=== PATIENT | male | born 1995 | race Hispanic/Latino ===

== ENCOUNTER 2022-07-13 16:28 | Observation (INO) | payer SELFPAY ==
[~2022-07-13 16:28] MED LIST: Iopamidol 370 76% 100 ML VIAL ONE
[2022-07-13] MEDS ORDERED: fentaNYL 50 mcg/mL 1 mL Vial ONE ×2 (18:48→20:06)
[2022-07-13] MEDS ORDERED: Ondansetron ODT 4 MG TAB PO PRN (20:15)
[2022-07-13] MEDS ORDERED: Ondansetron PF 4 MG/2 ML Vial IVP PRN (20:15)
[2022-07-13] MEDS ORDERED: Dextrose 50% Abboject 50 ML SYRINGE SLOW IVP PRN (20:15)
[2022-07-13] MEDS ORDERED: TETANUS, DIPHTHERIA TOX,ADULT (TDVAX) 0.5 ML VIAL IM ONE (20:15)
[2022-07-13] MEDS ORDERED: Dextrose 5% in Water 1,000 ML IV PRN (20:15)
[2022-07-13] MEDS ORDERED: Ipratropium/Albuterol 3 ML NEB NEB PRN (20:15)
[2022-07-13] MEDS ORDERED: Ibuprofen 200 MG TAB PO PRN (20:17)
[2022-07-13] MEDS ORDERED: traMADol HCl 50 MG TAB PO PRN (20:17)
[2022-07-13] MEDS ORDERED: Cyclobenzaprine 10 MG TAB PO PRN (20:17)
[2022-07-13 20:46] LABS: #Eosinphils 0.1 thou/uL (0.0-0.7); #Monocytes 0.7 thou/uL (0.11-0.59); #Neutrophils 10.3 thou/uL (1.40-6.50); %Basophils 0.2 % (0.0-1.0); %Eosinophils 0.6 % (0.0-10.0); %Lymphocytes 10.6 % (21.0-51.0); %Monocytes 5.4 % (0.0-10.0); Hemoglobin 14.8 g/dL (14.0-18.0); Mean Corpuscular HGB CONC 32.8 g/dL (32.0-36.0); Mean Corpuscular Hemoglobin 28.7 pg (27.0-31.0); Mean Corpuscular Volume 87.4 fl (78.0-98.0); Mean Platelet Volume 9.6 fL (7.4-10.4); Platelet Count 303 10x3/uL (130-400); RBC Distribution Width 13.1 % (11.5-14.5); Red Blood Cell (RBC) Count 5.16 mill/uL (4.70-6.10); White Blood Cell (WBC) Count 12.4 10x3/uL (4.8-10.8)
[2022-07-13 21:15] LABS: Anion Gap 13 mmol/L (10-20); BUN (Urea Nitrogen) 16 mg/dL (8.9-20.6); Calc. Creatinine Clearance 0 mL/min (70-130); Calcium 8.9 mg/dL (7.8-10.44); Carbon Dioxide 21 mmol/L (22-29); Chloride 103 mmol/L (98-107); Estimated GFR 90; Glucose 107 mg/dL (70-105); Potassium 3.6 mmol/L (3.5-5.1); Sodium 133 mmol/L (136-145)
[2022-07-13] MEDS ORDERED: Sodium Chloride 0.9% 1,000 ML IV SCH (21:45)
[2022-07-13] MEDS: Gabapentin 100 MG CAP PO SCH (23:44)
[2022-07-13] MEDS: Famotidine 20 MG TAB PO SCH (23:44)
[2022-07-13] MEDS: Senokot S 8.6-50 MG TAB PO SCH (23:44)
[2022-07-13] MEDS: traMADol HCl 50 MG TAB PO SCH (23:45)
[2022-07-13] MEDS: Acetaminophen 500 MG TAB PO SCH (23:45)
[2022-07-14 00:11] VITALS: BMI 25.7
[2022-07-14 04:44] LABS: #Eosinphils 0.1 thou/uL (0.0-0.7); #Monocytes 0.5 thou/uL (0.11-0.59); #Neutrophils 5.9 thou/uL (1.40-6.50); %Basophils 0.4 % (0.0-1.0); %Eosinophils 1.8 % (0.0-10.0); %Monocytes 6.7 % (0.0-10.0); %Neutrophils 75.8 % (42.0-75.0); Hemoglobin 13.7 g/dL (14.0-18.0); Mean Corpuscular HGB CONC 33.1 g/dL (32.0-36.0); Mean Corpuscular Hemoglobin 29.1 pg (27.0-31.0); Mean Corpuscular Volume 87.9 fl (78.0-98.0); Mean Platelet Volume 9.6 fL (7.4-10.4); Platelet Count 265 10x3/uL (130-400); RBC Distribution Width 13.2 % (11.5-14.5); Red Blood Cell (RBC) Count 4.71 mill/uL (4.70-6.10); White Blood Cell (WBC) Count 7.8 10x3/uL (4.8-10.8)
[2022-07-14 05:09] LABS: Anion Gap 9 mmol/L (10-20); BUN (Urea Nitrogen) 13 mg/dL (8.9-20.6); Calc. Creatinine Clearance 128 mL/min (70-130); Calcium 8.6 mg/dL (7.8-10.44); Carbon Dioxide 25 mmol/L (22-29); Chloride 106 mmol/L (98-107); Estimated GFR 122; Glucose 117 mg/dL (70-105); Potassium 3.2 mmol/L (3.5-5.1); Sodium 137 mmol/L (136-145)
[2022-07-14] MEDS: Gabapentin 100 MG CAP PO SCH (06:01)
[2022-07-14] MEDS: traMADol HCl 50 MG TAB PO SCH ×2 (06:02→12:44)
[2022-07-14] MEDS: Acetaminophen 500 MG TAB PO SCH ×2 (06:02→12:45)
[2022-07-14] MEDS ORDERED: Potassium Chloride 20 MEQ TAB PO SCH (08:45)
[2022-07-14] MEDS ORDERED: Polyethylene Glycol 3350 17 GM Packet PO SCH (09:00)
[2022-07-14] MEDS ORDERED: Potassium Chloride 20 MEQ in Premix Bag 1 BAG IVPB SCH (09:00)
[2022-07-14] MEDS: Senokot S 8.6-50 MG TAB PO SCH (10:31)
[2022-07-14] MEDS: Famotidine 20 MG TAB PO SCH (10:32)
[2022-07-14 12:51] VITALS: BP 112/59; TEMP 98.1
== END 2022-07-14 13:32 | disposition home or self-care (01) ==
LOC: ERS 16:28 → EDBD 16:28 → 2SW 20:15
PROVIDERS: ADMIT Specialist; ATTEND Specialist
DX: S28.0XXA Crushed chest, initial encounter (principal); S22.21XA Fracture of manubrium, initial encounter for closed fracture; S20.211A Contusion of right front wall of thorax, initial encounter; S20.412A Abrasion of left back wall of thorax, initial encounter; S30.810A Abrasion of lower back and pelvis, initial encounter; G89.11 Acute pain due to trauma; M25.511 Pain in right shoulder; M25.512 Pain in left shoulder; W20.8XXA Other cause of strike by thrown, projected or falling object, initial encounter; Y99.0 Civilian activity done for income or pay
CPT/HCPCS: 36415; 70450; 71260; 80048; 85025; 90714; 93005; 96365; 96366; 96374; 96375; 96376; G0378; J3010; J3480; J7050; Q9967